=== PATIENT | male | born 1995 | race Caucasian/White ===

== ENCOUNTER 2023-09-06 20:12 | Emergency (ER) | payer OTHER, SELFPAY ==
[2023-09-06 20:13] VITALS: BP 119/81; BMI 16.0
--- NOTE | 2023-09-06 20:54 | ED.GENMED ---
History of Present Illness
General
Chief Complaint: Breathing Problem
Source: patient
Exam Limitations: none
Time Seen by Provider: 09/06/23 20:43
History of Present Illness
History of Present Illness:
This is a 28 year old male that comes in with c/o SOB. States that he is being treated for Lyme's with Doxycycline and NSAIDS to help decreases the inflammation. States that the NSAIDS have caused his Asthma to act up. States that he has been
feeling SOB. States that he used his Inhaler before coming and he is feeling a little better. States that he felt dizzy like the room was spinning and that he has a cough. Denies any fever, chills, chest pain, abd pain, nausea, vomiting, diarrhea,
headache, urinary burning.
Past History
Past History
ED Past Medical History: Asthma, Psychiatric (Anxiety, Panic disorder) and Other (Scoliosis, Lyme disease)
ED Past Surgical History: Orthopedic (Thoracic spinal fusion. )
Social History
Tobacco: Non-smoker
Alcohol: None
Drug: None
Personal: Single
Living: with family
Review of Systems
Review of Systems
All Other Systems: ROS reviewed and negative except as documented in HPI and ROS
Constitutional: Reports no symptoms; Denies fever or chills
EENT: Reports no symptoms
Respiratory: Reports cough and trouble breathing
Cardiac: Reports no symptoms; Denies chest pain
ABD/GI: Reports no symptoms; Denies abdominal pain, nausea, vomiting or diarrhea
: Reports no symptoms; Denies dysuria, frequency or urgency
Musculoskeletal: Reports no symptoms
Skin: Reports no symptoms
Neurological: Reports dizzy; Denies headache
Phy Exam
General Physical Exam
General Presentation: well appearing and no apparent distress
General age: appears stated age
General Skin: warm and dry
General Habitus: normal
General Mental: anxious
General Hydration: appears well hydrated
ENT Exam
ENT Exam: TM's normal, pharynx normal and neck supple
Eye Exam
Eye Exam: EOMI
Cardiovascular Exam
Cardiovascular Exam: regular rate/rhythm, no edema, no murmur and normal peripheral pulses
Pulmonary Exam
Pulmonary Exam: no respiratory distress, no rales, chest non tender, no rhonchi and other (Fine crackle left base with exp garcia wheeze, Dry cough noted)
Gastrointestinal Exam
Gastrointestinal Exam: normal bowel sounds, non tender, soft, no organomegaly, no pulsatile mass and non distended
Musculoskeletal Exam
Musculoskeletal Exam: full ROM and no edema
Skin Exam
Skin Exam: normal color, warm/dry, no rash and no petechia
Course
Orders/Labs/Results
Orders:
Orders
09/06/23 20:54
Ipratropium/Albuterol Sulfate [Duoneb] 3 ml INH R NOW ONE
CR Chest - 2 Views Urgent
Comment:
Reason For Exam: Cough, crackles left base
Vital Signs
Initial and Last Documented VS:
Initial Vital Signs
Temp Pulse Resp BP Pulse Ox
98.2 F 93 16 119/81 96
09/06/23 20:13 09/06/23 20:13 09/06/23 20:13 09/06/23 20:13 09/06/23 20:13
Last Documented Vital Signs
Temp Pulse Resp BP Pulse Ox
98 F 79 16 112/78 99
09/06/23 21:47 09/06/23 21:47 09/06/23 21:47 09/06/23 21:47 09/06/23 21:47
MDM/Problems Addressed
Differential Diagnosis Includes:
Asthma attack, Anxiety
MDM/Problems Addressed:
This is a 28 year old male that comes in with c/o feeling SOB. States that he is being treated for Lymes and is taking NSAIDS. States that the NSAIDS cause his asthma to flare. States that he used his Inhaler and this helped some and he is feeling
some better.
Will get chest x-ray and give Duo neb
Back into see patient. Patient states that he is feeling better. Patient has been given steroid by his community product specialist that he has not started. Patient is seeing his PCP in 1.5 days. Patient has had a Nebulizer in the past and told him to
discuss this with his PCP. Patient to return with any concerns.
Chronic conditions affecting care: Asthma and Psychiatric illness
Acute Exacerbation and/or Progression of Chronic Illness: Asthma and Psychiatric illness
*Radiology
Radiology exam reviewed: preliminary read by ED provider (Chest- Negative for active disease. spinal hard lorenzana in place) and radiology read reviewed (Chest-NO acute cardiopulmonary process. 2.8cm nodular focus projecting over the left lung apex on
the PA projection, not identified on the lateral projection. Potentially artifactual, but consider a follow-up chest CT on a routine basis. )
*Pulse Oximetry
Patient hypoxic: no
*EKG
Interpreted by ED Provider?: NA
Rate: EKG- N/A
*Airplane Cabin Attendant Interpretation
Rate: Airplane Cabin Attendant- N/A
*Critical Care Note
Total Time (30-74mins, 75-104mins- exclusive of procedures): Not Applicable
ED Attending Note
-
Portions of this chart may have been created with voice recognition software.� Occasional wrong word or��sound alike� substitutions may have occurred due to the inherent limitations of voice recognition software.
Discharge Plan
Departure
Patient Disposition: Home (Routine Discharge)
Date of Disposition: 09/06/23
Time of Disposition: 22:10
Patient with high blood pressure during this ER visit?: No
Condition: Good
Covid-19: Not Applicable
Discharge Problem:
SOB (shortness of breath)
Instructions: Shortness of Breath, Adult ED
Prescriptions:
No Action
epinephrine [EpiPen] 0.3 MG/0.3/SYRINGE auto-injector
0.3 mg IM PRN PRN (Reason: allergy) Qty: 3 0RF
albuterol sulfate 1 PUFF HFA aerosol inhaler
2 PRN PRN (Reason: shortness of breath)
prednisone 20 MG tablet
40 mg PO DAILY Qty: 8 0RF
amoxicillin-pot clavulanate 875 MG/125 MG tablet
1 tab PO Q12 Qty: 20 0RF
albuterol sulfate [Proventil] 2.5 MG/3 ML solution for nebulization
0.83 mg inhalation QID PRN (Reason: dyspnea) Qty: 14 0RF
prednisone 20 MG tablet
40 mg PO DAILY Qty: 8 0RF
docusate sodium [Colace] 100 MG capsule
100 mg PO BID Qty: 20 0RF
Activity Restrictions/Additional Instructions:
As discussed, you can use your Inhaler every 4 hours as needed for wheezing or shortness of breath. Follow up with the family doctor for recheck. Your chest x-ray shows a projection in the apex of the left lung. This can be followed up by the Family
doctor with an out patient CT scan. This appears to be artifact but this can not be determined. Use the steroid that the pulmonary doctor has given you if needed. IF YOU HAVE ANY OTHER CONCERNS PLEASE RETURN TO THE EMERGENCY ROOM.
Interventions
Interventions:
*Risk Screen - Suicide Last Done: 09/06/23 20:13
*General Assessment Last Done: 09/06/23 21:17
*Neglect/Abuse Screening Last Done: 09/06/23 20:13
ED- Fall Risk Assessment Last Done: 09/06/23 21:16
*ED COVID-19 Vaccine History Last Done: 09/06/23 21:17
ED- Cardiac Assessment Last Done: 09/06/23 21:16
ED- Pulmonary Assessment Last Done: 09/06/23 21:16
Discharge Date and Time
Print Language: BENINESE
[2023-09-06] MEDS: DUONEB 3 ML INH (21:13)
--- NOTE | 2023-09-06 21:46 | EDRN ---
Pt to xray
[2023-09-06 21:47] VITALS: BP 112/78
[2023-09-06 22:18] VITALS: BP 112/78
== END 2023-09-06 22:19 | disposition home or self-care (01) ==
LOC: EMR 20:12
PROVIDERS: EMERGENCY PHYSICIAN Emergency Medicine; FAMILY PHYSICIAN Family Medicine
DX: R06.02 Shortness of breath (principal); J45.909 Unspecified asthma, uncomplicated
CPT/HCPCS: 99283; 94640; 71046